=== PATIENT | male | born 1935 | race Caucasian/White ===

== ENCOUNTER 2019-11-21 11:31 | Inpatient (IN) | payer OTHER ==
[2019-11-21 11:46] VITALS: BMI 22.6
--- NOTE | 2019-11-21 12:28 | PDOC ---
History of Present Illness - General Chief Complaint: Chest Pain Stated Complaint: BACK PAIN / FATIGUE Time Seen by Provider: 11/21/19 12:04 - History of Present Illness Initial Comments: 84 yo male with PMH of HLD, DM, GERD presents with chest pressure. Chest Pressure started 1 day ago, mid sternal, radiates to back, non exertional. He also endorses congestion and a cough with clear sputum. He denies fevers, chills, nvd, abd pain, dysuria. He is citizen of [place] speaking so his daughter was used for translation. Pt has a history of alcohol abuse. He had fallen and hit his right eye a few days ago. Pt was advised to have a placemaker placed 10 years ago but declined at the time. PCP: Eduardo Lima Past History - Medical History Allergies/Adverse Reactions: Allergies Allergy/AdvReac Type Severity Reaction Status Date / Time No Known Allergies Allergy Verified 04/16/16 09:04 Home Medications: Ambulatory Orders Aspirin [ASA -] 81 mg PO DAILY 11/21/19 Atorvastatin Ca [Lipitor] 40 mg PO HS 11/21/19 Fluticasone Prop 0.05% Nasal [Flonase -] 1 spray NS PRN 11/21/19 Metformin HCl [Glucophage] 500 mg PO BID 11/21/19 Pantoprazole Sodium [Protonix] 40 mg PO DAILY 11/21/19 COPD: No Diabetes: Yes HTN: Yes Hypercholesterolemia: Yes - Immunization History Immunization Up to Date: No - Psycho-Social/Smoking History Smoking History: Never smoked - Substance Abuse Hx (Audit-C & DAST Scrn) How often the patient has a drink containing alcohol: Never Score: In Men: 4 or > Positive; In Women: 3 or > Positive: 0 Screen Result (Pos requires Nsg. Audit-10AR): Negative In the last yr the pt used illegal drug/Rx for NonMed reason: No Score: Yes response is considered Positive: 0 Screen Result (Positive result requires Nsg. DAST-10): Negative Review of Systems - Review of Systems Constitutional: No: Chills, Fever HEENTM: No: Recent change in vision, Double Vision Respiratory: Yes: Cough, Productive cough. No: Shortness of Breath Cardiac (ROS): Yes: Chest Tightness. No: Edema, Palpitations, Syncope ABD/GI: No: Diarrhea, Nausea, Vomiting, Abdominal cramping : No: Burning, Dysuria Musculoskeletal: No: Joint Pain, Muscle Pain Integumentary: No: Erythema, Flushing, Lesions Neurological: No: Headache, Dizziness Psychiatric: No: Anxiety, Depression, Mood Swings Endocrine: No: Intolerance to Cold, Intolerance to Heat *Physical Exam - Vital Signs Last Vital Signs Temp Pulse Resp BP Pulse Ox 97.5 F L 58 L 18 109/45 L 100 11/21/19 11:44 11/21/19 11:44 11/21/19 11:44 11/21/19 11:44 11/21/19 12:00 - Physical Exam General Appearance: Yes: Appropriately Dressed. No: Apparent Distress HEENT: positive: EOMI, Normal Voice Respiratory/Chest: positive: Lungs Clear, Normal Breath Sounds. negative: Respiratory Distress Cardiovascular: positive: Regular Rhythm, Regular Rate, S1, S2. negative: Murmur Gastrointestinal/Abdominal: positive: Flat, Soft. negative: Tender Musculoskeletal: positive: Normal Inspection. negative: CVA Tenderness Extremity: positive: Normal Capillary Refill, Normal Inspection, Normal Range of Motion Integumentary: positive: Normal Color, Dry, Warm Neurologic: positive: Fully Oriented, Alert, Normal Mood/Affect ED Treatment Course - LABORATORY CBC & Chemistry Diagram: 11/21/19 12:25 11/21/19 12:33 - RADIOLOGY Radiology Studies Ordered: Category Date Time Status CHEST PA & LAT [RAD] Stat Radiology 11/21/19 12:17 Ordered Medical Decision Making - Medical Decision Making 84 yo male with PMH of HLD, DM, GERD presents with 1 day hx of midsternal chest pressure. Heart Score = 4 EKst degree AV block with ME interval 248. Labs: -CBC normal -CMP normal -Trop negative -Lipase negative Images: (CT Head, Chest, Abdomen, Pelvis) Head- no acute pathology Chest- chronic insterstitial disease suggest COPD Aorta- no dissection Pt admitted to telemetry for cardiac monitoring Discharge - Discharge Information Problems reviewed: Yes Clinical Impression/Diagnosis: Chest pain Condition: Stable - Admission Yes - Follow up/Referral - Patient Discharge Instructions - Post Discharge Activity
[2019-11-21 13:31] LABS: HEMATOCRIT 37.8 % (35.4-49); HEMOGLOBIN 12.8 GM/dL (11.7-16.9); MCH 33.1 pg (25.7-33.7); MCHC 33.7 g/dl (32.0-35.9); MEAN CELL VOLUME 98.1 fl (80-96); MEAN PLT VOLUME 7.7 fl (7.5-11.1); PLATELET COUNT 207 K/MM3 (134-434); RBC 3.86 M/mm3 (4.00-5.60); RDW 13.3 % (11.9-15.9); WHITE BLOOD COUNT 8.1 K/mm3 (4.0-10.0)
[2019-11-21 14:09] LABS: ALBUMIN 3.8 g/dl (3.4-5.0); ALK PHOS 68 U/L (45-117); ANION GAP 5 MMOL/L (8-16); BILIRUBIN,TOTAL 0.4 mg/dL (0.2-1); BLOOD UREA NITROGEN 24.4 mg/dL (7-18); CALCIUM 8.9 mg/dL (8.5-10.1); CHLORIDE 104 mmol/L (98-107); CO2 27 mmol/L (21-32); CREATININE 0.9 mg/dL (0.55-1.3); GLUCOSE,RANDOM 103 mg/dL (74-106); LIPASE 119 U/L (73-393); POTASSIUM 4.9 mmol/L (3.5-5.1); SGOT/AST 22 U/L (15-37); SGPT/ALT 19 U/L (13-61); SODIUM 136 mmol/L (136-145)
--- NOTE | 2019-11-21 14:51 | PDOC ---
Documentation entered by Susan Paniagua SCRIBE, acting as scribe for Dmitriy Inman MD. Dmitriy Inman MD: This documentation has been prepared by the riosibe, Susan Paniagua SCRIBE, under my direction and personally reviewed by me in its entirety. I confirm that the documentation accurately reflects all work, treatment, procedures, and medical decision making performed by me. Attending Attestation - Resident Resident Name: MerlyAlexandreestefani - ED Attending Attestation I have performed the following: I have examined & evaluated the patient, The case was reviewed & discussed with the resident, I agree w/resident's findings & plan, Exceptions are as noted - HPI HPI: 11/21/19 14:20 84-year-old male with a history of diabetes, hyperlipidemia, GERD, alcohol abuse presents emergency department with chest pressure since this morning. Reports the pain is midsternal and radiates straight back and is not worse with exertion. He denies any associated SOB, dizziness, focal weakness or numbness, diaphoresis. Denies associated nausea or vomiting. He also reports 3 days of congestion as well as cough with nonproductive sputum. Denies recent travel, lower extremity edema. Denies similar sxs in the past. - Physicial Exam PE: 11/21/19 14:49 Agree with resident exam - Medical Decision Making 11/21/19 14:50 84-year-old male with a history of diabetes, hyperlipidemia, GERD, alcohol abuse presents emergency department with chest pressure radiating to the back since this morning. Mildly bradycardic to 52, remainder of vitals within normal limits. Differential includes ACS versus aortic dissection versus CHF versus pneumonia versus musculoskeletal pain versus PE. Given radiation of the pain to the back, will obtain a CTA dissection protocol. Unlikely PE as patient denies any shortness of breath, has no PE risk factors, and is satting 100% on room air. Anticipate admission pending CTA. Discharge - Discharge Information Problems reviewed: Yes Clinical Impression/Diagnosis: Chest pain Condition: Stable - Follow up/Referral - Patient Discharge Instructions - Post Discharge Activity
[2019-11-21] MEDS ORDERED: ASPIRIN COATED 81 MG TABLET.EC PO ONE (16:37)
[2019-11-21] MEDS ORDERED: ASPIRIN COATED 81 MG TABLET.EC ONE (17:00)
--- NOTE | 2019-11-21 17:48 | EKG ---
Test Reason : Blood Pressure : / mmHG Vent. Rate : 052 BPM Atrial Rate : 052 BPM P-R Int : 248 ms QRS Dur : 098 ms QT Int : 438 ms P-R-T Axes : 025 042 071 degrees QTc Int : 407 ms SINUS BRADYCARDIA WITH 1ST DEGREE A-V BLOCK MINIMAL VOLTAGE CRITERIA FOR LVH, MAY BE NORMAL VARIANT BORDERLINE ECG NO PREVIOUS ECGS AVAILABLE Confirmed by CICI SENA MD ([id number]) on 11/21/2019 5:48:08 PM Referred By: Confirmed By:CICI SENA MD
[2019-11-21] MEDS: ATORVASTATIN CA 40 MG TABLET (FP) PO SCH (22:52)
[2019-11-21] MEDS: HEPARIN NA (PORCINE) 5,000 UNITS/ML 1ML VIAL SQ SCH (22:53)
[2019-11-22] MEDS: HEPARIN NA (PORCINE) 5,000 UNITS/ML 1ML VIAL SQ SCH ×3 (00:50→21:30)
[2019-11-22] MEDS: ATORVASTATIN CA 40 MG TABLET (FP) PO SCH ×2 (00:50→21:30)
[2019-11-22 06:47] LABS: BASO % 0.2 % (0-2.0); EOS % 1.2 % (0-4.5); HEMATOCRIT 34.5 % (35.4-49); HEMOGLOBIN 11.9 GM/dL (11.7-16.9); LYMPH % 41.5 % (8-40); MCH 33.3 pg (25.7-33.7); MCHC 34.3 g/dl (32.0-35.9); MEAN CELL VOLUME 97.1 fl (80-96); MEAN PLT VOLUME 6.9 fl (7.5-11.1); MONO % 8.3 % (3.8-10.2); NEUT % 48.8 % (42.8-82.8); PLATELET COUNT 178 K/MM3 (134-434); RBC 3.56 M/mm3 (4.00-5.60); RDW 13.4 % (11.9-15.9); WHITE BLOOD COUNT 5.7 K/mm3 (4.0-10.0)
--- NOTE | 2019-11-22 07:03 | RAPID ---
Physical Examination Vital Signs: Vital Signs Temperature 98.2 F 11/22/19 05:52 Pulse Rate 44 L 11/22/19 05:52 Respiratory Rate 18 11/22/19 05:52 Blood Pressure 146/70 11/22/19 05:52 O2 Sat by Pulse Oximetry (%) 96 11/22/19 05:52 HR 70, BP 144/80, 100%(RA) BGM 98 Findings/Remarks: Rapid Response called at approx 6:20am. Nurse heard loud sound. Found pt sitting slumped in the bathroom. When pt tried getting up, he lost consciousness. No blood or urine at the scene. Denies pain. Denies LOPEZ, CP, SOB, palpitations. Constitutional: Yes: No Distress, Calm, Pallor HENT: Yes: Atraumatic (no scalp hematoma, nasal bridge midline), Normocephalic Neck: Yes: WNL, Supple, Trachea Midline, Other Cardiovascular: Yes: Bradycardia, Murmur (3/5 systolic murmurs) Respiratory: Yes: CTA Bilaterally. No: Accessory Muscle Use Gastrointestinal: Yes: Soft Musculoskeletal: No: Muscle Pain, Muscle Weakness Extremities: Yes: Other (no long-bone deformities). No: Calf Tenderness Edema: No Peripheral Pulses WNL: No Peripheral Pulses: Left Radial: 2+, Right Radial: 2+, Left Doralis Pedis: 2+, Right Dorsalis Pedis: 2+ Integumentary: No: Bruising, Laceration Neurological: Yes: Alert Rapid Response - Rapid Response Assessment: sp unwitnessed fall and possible syncope. HD stable. BGM 98. Tele monitor showing sinus bradycardia. -CTH to r/o ICH -carotid doppler, and orthostatics to evaluate for syncope
[2019-11-22 07:24] LABS: ALBUMIN 3.4 g/dl (3.4-5.0); BILIRUBIN,TOTAL 0.5 mg/dL (0.2-1); BLOOD UREA NITROGEN 22.1 mg/dL (7-18); CALCIUM 8.7 mg/dL (8.5-10.1); CREATININE 0.9 mg/dL (0.55-1.3); MAGNESIUM 2.6 mg/dL (1.8-2.4); POTASSIUM 4.6 mmol/L (3.5-5.1); TOT PROT 7.3 g/dl (6.4-8.2)
--- NOTE | 2019-11-22 08:09 | HP ---
Admitting History and Physical - Admission History of Present Illness: 84 Y/O MALE ADMITTED FOR CHEST PAIN. AT THIS TIME PT STATES HE DIDNT HAVE CHEST PAIN BUT FATIGUE AND WAS ANXIOUS THIS AM PT HAD A FALL--PT UNABLE TO GIVE DETAILS OF EVENT - Past Medical History Cardiovascular: Yes: HTN, Hyperlipdemia Gastrointestinal: Yes: GERD Endocrine: Yes: Diabetes Mellitus - Smoking History Smoking history: Former smoker Have you smoked in the past 12 months: No Aproximately how many cigarettes per day: 2 If you are a former smoker, when did you quit?: 20 YRS AGO Home Medications - Allergies Allergies/Adverse Reactions: Allergies Allergy/AdvReac Type Severity Reaction Status Date / Time No Known Allergies Allergy Verified 04/16/16 09:04 - Home Medications Home Medications: Ambulatory Orders Aspirin [ASA -] 81 mg PO DAILY 11/21/19 Atorvastatin Ca [Lipitor] 40 mg PO HS 11/21/19 Fluticasone Prop 0.05% Nasal [Flonase -] 1 spray NS PRN 11/21/19 Metformin HCl [Glucophage] 500 mg PO BID 11/21/19 Pantoprazole Sodium [Protonix] 40 mg PO DAILY 11/21/19 Review of Systems - Review of Systems Cardiovascular: denies: Chest Pain Respiratory: denies: SOB Gastrointestinal: denies: Abdominal Pain Neurological: reports: Syncope, Weakness Physical Examination Vital Signs: Vital Signs Temperature 98.2 F 11/22/19 05:52 Pulse Rate 44 L 11/22/19 05:52 Respiratory Rate 18 11/22/19 05:52 Blood Pressure 146/70 11/22/19 05:52 O2 Sat by Pulse Oximetry (%) 96 11/22/19 05:52 Cardiovascular: Yes: Bradycardia, S1, S2 Respiratory: Yes: Regular, CTA Bilaterally Gastrointestinal: Yes: Normal Bowel Sounds, Soft. No: Tenderness Edema: No Neurological: Yes: Alert, Oriented. No: Dysarthria, Facial Droop Labs: CBC, BMP 11/22/19 05:50 11/22/19 05:50 Imaging - Results Cat Scan: Report Reviewed Problem List - Problems (1) Chest pain Assessment/Plan: QUESTIONABLE IF CP CE NEGATIVE ECHO CARDIO Code(s): R07.9 - CHEST PAIN, UNSPECIFIED (2) Syncope Assessment/Plan: UNWITNESSED BUT NOTED ON FLOOR BRADYCARDIA NOTED CT HESD NEURO CARDIO ECHO LABS NOTED TELE Code(s): R55 - SYNCOPE AND COLLAPSE (3) HLD (hyperlipidemia) Assessment/Plan: Laboratory Tests 11/22/19 05:50 Cholesterol 156 Total LDL Cholesterol 93 HDL Cholesterol 45 Code(s): E78.5 - HYPERLIPIDEMIA, UNSPECIFIED (4) Diabetes Assessment/Plan: MONITOR BGM HOLD METFROMIN Code(s): E11.9 - TYPE 2 DIABETES MELLITUS WITHOUT COMPLICATIONS (5) Aneurysm Assessment/Plan: NO DISSECTION NOTED ECHO CARDIO Code(s): I72.9 - ANEURYSM OF UNSPECIFIED SITE
[2019-11-22] MEDS: PANTOPRAZOLE 40 MG TABLET PO SCH (09:44)
[2019-11-22] MEDS: ASPIRIN 81 MG CHEWABLE TABLETS PO SCH (09:44)
--- NOTE | 2019-11-22 09:45 | CON.CARD ---
Consult Consult Specialty:: Cardiology Referred by:: Sotero Reason for Consultation:: Chest pain - History of Present Illness Chief Complaint: Chest pain History of Present Illness: The patient is an 84-year-old man, with a history of diabetes, hypertension, hyperlipidemia, alcohol consumer, falls, now admitted with retrosternal chest tightness and shortness of breath. Symptoms occurred at rest. The patient is currently comfortable and symptom-free. Completely asymptomatic. Ruled out for COVID-19. The patient had a syncopal event in the toilet last night. ECG shows sinus bradycardia at 52, first-degree AV block, voltage criteria for left ventricular hypertrophy, nonspecific ST-T changes. - History Source History Provided By: Patient, Medical Record Limitations to Obtaining History: Poor Historian - Past Medical History Cardio/Vascular: Yes: HTN, Hyperlipdemia Gastrointestinal: Yes: GERD Endocrine: Yes: Diabetes Mellitus - Smoking History Smoking history: Former smoker Have you smoked in the past 12 months: No Aproximately how many cigarettes per day: 2 If you are a former smoker, when did you quit?: 20 YRS AGO Home Medications - Allergies Allergies/Adverse Reactions: Allergies Allergy/AdvReac Type Severity Reaction Status Date / Time No Known Allergies Allergy Verified 04/16/16 09:04 - Home Medications Home Medications: Ambulatory Orders Aspirin [ASA -] 81 mg PO DAILY 11/21/19 Atorvastatin Ca [Lipitor] 40 mg PO HS 11/21/19 Fluticasone Prop 0.05% Nasal [Flonase -] 1 spray NS PRN 11/21/19 Metformin HCl [Glucophage] 500 mg PO BID 11/21/19 Pantoprazole Sodium [Protonix] 40 mg PO DAILY 11/21/19 Review of Systems - Review of Systems Constitutional: reports: No Symptoms Eyes: reports: No Symptoms HENT: reports: No Symptoms Neck: reports: No Symptoms Cardiovascular: reports: No Symptoms Respiratory: reports: No Symptoms Gastrointestinal: reports: No Symptoms Genitourinary: reports: No Symptoms Breasts: reports: No Symptoms Reported Musculoskeletal: reports: No Symptoms Integumentary: reports: No Symptoms Neurological: reports: No Symptoms Endocrine: reports: No Symptoms Hematology/Lymphatic: reports: No Symptoms Vital Signs: Vital Signs Temperature 98.0 F 11/22/19 06:35 Pulse Rate 50 L 11/22/19 06:35 Respiratory Rate 18 11/22/19 06:35 Blood Pressure 144/70 11/22/19 06:35 O2 Sat by Pulse Oximetry (%) 96 11/22/19 06:35 Constitutional: Yes: Well Nourished, No Distress, Calm Eyes: Yes: WNL, Conjunctiva Clear, EOM Intact HENT: Yes: WNL, Atraumatic, Normocephalic Neck: Yes: WNL, Supple, Trachea Midline Respiratory: Yes: WNL, Regular, CTA Bilaterally Gastrointestinal: Yes: WNL, Normal Bowel Sounds, Soft Cardiovascular: Yes: WNL, Regular Rate and Rhythm, Bradycardia JVD: No Carotid Bruit: No PMI: Non-Displaced Heart Sounds: Yes: S1, S2 Murmur: Yes: Systolic Murmur, Grade 2 Musculoskeletal: Yes: WNL Extremities: Yes: WNL Edema: No Peripheral Pulses: 1+ Left Doralis Pedis, 1+ Right Dorsalis Pedis Integumentary: Yes: WNL Neurological: Yes: WNL, Alert, Oriented ...Motor Strength: WNL - Other Data Labs, Other Data: CBC, BMP 11/22/19 05:50 11/22/19 05:50 Troponin, BNP 11/21/19 11/21/19 11/22/19 12:33 14:50 05:50 Troponin I < 0.02 < 0.02 0.02 Troponin, BNP 11/21/19 11/21/19 11/22/19 12:33 14:50 05:50 Troponin I < 0.02 < 0.02 0.02 Assessment/Plan The patient is an 84-year-old man, with a history of diabetes, hypertension, hyperlipidemia, alcohol consumer, falls, now admitted with retrosternal chest tightness and shortness of breath. Symptoms occurred at rest. The patient is currently comfortable and symptom-free. Completely asymptomatic. Ruled out for COVID-19. The patient had a syncopal event in the toilet last night. ECG shows sinus bradycardia at 52, first-degree AV block, voltage criteria for left ventricular hypertrophy, nonspecific ST-T changes. There is no evidence of ischemia nor acute coronary syndrome. No CHF. No arrhythmias documented at this point. Please continue current regimen. Please arrange for a pharmacological nuclear stress test. Also arrange for an echocardiogram. The patient is stable. We will follow results.
--- NOTE | 2019-11-22 10:38 | EKG ---
Test Reason : Blood Pressure : / mmHG Vent. Rate : 051 BPM Atrial Rate : 051 BPM P-R Int : 246 ms QRS Dur : 104 ms QT Int : 448 ms P-R-T Axes : 025 029 088 degrees QTc Int : 412 ms SINUS BRADYCARDIA WITH 1ST DEGREE A-V BLOCK LEFT VENTRICULAR HYPERTROPHY WITH REPOLARIZATION ABNORMALITY ABNORMAL ECG WHEN COMPARED WITH ECG OF 21-NOV-2019 14:49, NO SIGNIFICANT CHANGE WAS FOUND Confirmed by Víctor Manning MD ([id number]) on 11/22/2019 10:38:20 AM Referred By: MAYANK FATIMA DR Confirmed By:Víctor Manning MD
--- NOTE | 2019-11-22 10:38 | EKG ---
Test Reason : Blood Pressure : / mmHG Vent. Rate : 050 BPM Atrial Rate : 050 BPM P-R Int : 252 ms QRS Dur : 106 ms QT Int : 454 ms P-R-T Axes : 017 039 076 degrees QTc Int : 413 ms SINUS BRADYCARDIA WITH 1ST DEGREE A-V BLOCK LEFT VENTRICULAR HYPERTROPHY WITH REPOLARIZATION ABNORMALITY ABNORMAL ECG WHEN COMPARED WITH ECG OF 21-NOV-2019 12:26, NO SIGNIFICANT CHANGE WAS FOUND Confirmed by Víctor Manning MD ([id number]) on 11/22/2019 10:37:09 AM Referred By: Confirmed By:Víctor Manning MD
--- NOTE | 2019-11-22 11:23 | ECHO ---
Version: 1 Name: MONIK QUIROGA Exam: Adult Echocardiogram Study Date: 11/22/2019, 10:18 AM Age: 84 Years MMode/2D Measurements & Calculations IVSd: 1.48 cm LVIDs: 2.28 cm LVIDd: 3.4 cm LVPWd: 1.36 cm LAV (MOD-bp): 41.8 ml LVOT diam: 2.03 cm Ao root diam: 3.3 cm LA dimension: 3.1 cm Doppler Measurements & Calculations MV E max jermaine: 54.5 cm/sec Med E/e': 16.7 MV A max jermaine: 136.5 cm/sec Med Peak E' Jermaine: 3.3 cm/sec MV E/A: 0.40 Lat E/e': 12.2 Lat Peak E' Jermaine: 4.5 cm/sec Ao max P.9 mmHg Ao V2 max: 157.5 cm/sec AI P1/2t: 705.2 msec TR max jermaine: 226.7 cm/sec TR max P.6 mmHg Left Ventricle The left ventricle is grossly normal size. There is mild concentric left ventricular hypertrophy. Le ft ventricular systolic function is normal. Ejection Fraction = 65%. The transmitral spectral Doppler f low pattern is suggestive of impaired LV relaxation. Right Ventricle The right ventricle is normal in size and function. Atria Normal left and right atrial size and function. Mitral Valve There is mild mitral valve thickening. There is mild mitral regurgitation. Tricuspid Valve The tricuspid valve is normal in structure and function. There is mild tricuspid regurgitation. Aortic Valve There is mild aortic sclerosis.;. Mild aortic regurgitation. Pulmonic Valve The pulmonic valve is not well visualized. Great Vessels The aortic root is normal size. Normal aortic arch, descending and ascending aorta. Pericardium/Pleura There is no pericardial effusion. Summary Statements Left ventricular systolic function is normal. There is mild concentric left ventricular hypertrophy. The left ventricle is grossly normal size. Ejection Fraction = 65%. The transmitral spectral Doppler flow pattern is suggestive of impaired LV relaxation. The right ventricle is normal in size and function. Normal left and right atrial size and function. There is mild mitral valve thickening. There is mild mitral regurgitation. The tricuspid valve is normal in structure and function. There is mild tricuspid regurgitation. There is mild aortic sclerosis.; Mild aortic regurgitation. The pulmonic valve is not well visualized. The aortic root is normal size. Normal aortic arch, descending and ascending aorta There is no pericardial effusion. Sotero [place] 11/22/2019, 11:22 AM Ordering Physician: Trino Hood Performed By: Nikole Klein
[2019-11-22] MEDS: INSULIN SLIDING SCALE (NOVOLOG) 1 VIAL SQ SCH ×3 (11:40→21:34)
[2019-11-22] MEDS: NIFEdipine E.R. 30 MG TABLET PO SCH (16:47)
[2019-11-22] MEDS: FLUTICASONE PROP 0.05% 16 GM NASAL SPRAY NS SCH (17:41)
[2019-11-22 18:07] LABS: PH,URINE 6.5 (5.0-8.0); URINE APPEARANCE CLEAR; URINE BILIRUBIN NEGATIVE (NEGATIVE); URINE COLOR YELLOW; URINE GLUCOSE (UA) NEGATIVE (NEGATIVE); URINE KETONE NEGATIVE (NEGATIVE); URINE LEUK ESTERASE NEGATIVE (NEGATIVE); URINE NITRITE NEGATIVE (NEGATIVE); URINE PROTEIN NEGATIVE (NEGATIVE); URINE UROBILINOGEN 0.2 mg/dL (0.2-1.0)
[2019-11-23] MEDS: INSULIN SLIDING SCALE (NOVOLOG) 1 VIAL SQ SCH ×4 (06:39→22:17)
--- NOTE | 2019-11-23 08:42 | PN ---
Progress Note, Physician - Current Medication List Current Medications: Active Medications Aspirin (Asa -) 81 mg PO DAILY [facility] Last Admin: 11/22/19 09:44 Dose: 81 mg Documented by: Atorvastatin Calcium (Lipitor -) 40 mg PO HS [facility] Last Admin: 11/22/19 21:30 Dose: 40 mg Documented by: Fluticasone Propionate (Flonase -) 1 spray NS DAILY [facility] Last Admin: 11/22/19 17:41 Dose: 1 spray Documented by: Heparin Sodium (Porcine) (Heparin -) 5,000 unit SQ BID [facility] Last Admin: 11/22/19 21:30 Dose: 5,000 unit Documented by: Insulin Aspart (Novolog Vial Sliding Scale -) 1 vial SQ ACHS [facility]; Protocol Last Admin: 11/23/19 06:39 Dose: Not Given Documented by: Nifedipine (Procardia Xl -) 30 mg PO DAILY [facility] Last Admin: 11/22/19 16:47 Dose: 30 mg Documented by: Pantoprazole Sodium (Protonix -) 40 mg PO DAILY [facility] Last Admin: 11/22/19 09:44 Dose: 40 mg Documented by: - Objective Vital Signs: Vital Signs Temperature 97.8 F 11/23/19 06:00 Pulse Rate 46 L 11/23/19 06:00 Respiratory Rate 18 11/23/19 06:00 Blood Pressure 98/48 L 11/23/19 06:00 O2 Sat by Pulse Oximetry (%) 98 11/23/19 06:00 Cardiovascular: Yes: Regular Rate and Rhythm Respiratory: Yes: Regular, CTA Bilaterally Gastrointestinal: Yes: Normal Bowel Sounds, Soft Labs: CBC, BMP 11/22/19 05:50 11/22/19 05:50 Problem List - Problems (1) Chest pain Assessment/Plan: QUESTIONABLE IF CP CE NEGATIVE ECHO CARDIO noted--stress test Code(s): R07.9 - CHEST PAIN, UNSPECIFIED (2) Syncope Assessment/Plan: UNWITNESSED BUT NOTED ON FLOOR BRADYCARDIA NOTED CT HEAD NEURO CARDIO ECHO LABS NOTED TELE Code(s): R55 - SYNCOPE AND COLLAPSE (3) HLD (hyperlipidemia) Assessment/Plan: Laboratory Tests 11/22/19 05:50 Cholesterol 156 Total LDL Cholesterol 93 HDL Cholesterol 45 Code(s): E78.5 - HYPERLIPIDEMIA, UNSPECIFIED (4) Diabetes Assessment/Plan: MONITOR BGM HOLD METFROMIN Code(s): E11.9 - TYPE 2 DIABETES MELLITUS WITHOUT COMPLICATIONS (5) Aneurysm Assessment/Plan: NO DISSECTION NOTED ECHO CARDIO Code(s): I72.9 - ANEURYSM OF UNSPECIFIED SITE
--- NOTE | 2019-11-23 08:52 | PN ---
Progress Note, Physician Chief Complaint: Chest pain and shortness of breath History of Present Illness: The patient is an 84-year-old man, with a history of diabetes, hypertension, hyperlipidemia, alcohol consumer, falls, now admitted with retrosternal chest tightness and shortness of breath. Symptoms occurred at rest. The patient is currently comfortable and symptom-free. Completely asymptomatic. Ruled out for COVID-19. The patient had a syncopal event in the toilet last night. ECG shows sinus bradycardia at 52, first-degree AV block, voltage criteria for left ventricular hypertrophy, nonspecific ST-T changes. There is no evidence of ischemia nor acute coronary syndrome. No CHF. No arrhythmias documented at this point. Echocardiogram performed 11/22/2019 showed normal left ventricular ejection frac tion, normal right ventricular systolic function left ventricular hypertrophy, mild mitral and tricuspid valve regurgitation. No other clinically important findings noted on the echo. - Current Medication List Current Medications: Active Medications Aspirin (Asa -) 81 mg PO DAILY [facility] Last Admin: 11/22/19 09:44 Dose: 81 mg Documented by: Atorvastatin Calcium (Lipitor -) 40 mg PO HS [facility] Last Admin: 11/22/19 21:30 Dose: 40 mg Documented by: Fluticasone Propionate (Flonase -) 1 spray NS DAILY [facility] Last Admin: 11/22/19 17:41 Dose: 1 spray Documented by: Heparin Sodium (Porcine) (Heparin -) 5,000 unit SQ BID [facility] Last Admin: 11/22/19 21:30 Dose: 5,000 unit Documented by: Insulin Aspart (Novolog Vial Sliding Scale -) 1 vial SQ ACHS [facility]; Protocol Last Admin: 11/23/19 06:39 Dose: Not Given Documented by: Nifedipine (Procardia Xl -) 30 mg PO DAILY [facility] Last Admin: 11/22/19 16:47 Dose: 30 mg Documented by: Pantoprazole Sodium (Protonix -) 40 mg PO DAILY [facility] Last Admin: 11/22/19 09:44 Dose: 40 mg Documented by: - Objective Vital Signs: Vital Signs Temperature 97.8 F 11/23/19 06:00 Pulse Rate 46 L 11/23/19 06:00 Respiratory Rate 18 11/23/19 06:00 Blood Pressure 98/48 L 11/23/19 06:00 O2 Sat by Pulse Oximetry (%) 98 11/23/19 06:00 Constitutional: Yes: Well Nourished, No Distress, Calm Eyes: Yes: WNL, Conjunctiva Clear, EOM Intact HENT: Yes: WNL, Atraumatic, Normocephalic Neck: Yes: WNL, Supple, Trachea Midline Cardiovascular: Yes: WNL, Regular Rate and Rhythm, Bradycardia Respiratory: Yes: WNL, Regular, CTA Bilaterally Gastrointestinal: Yes: WNL, Normal Bowel Sounds, Soft ...Rectal Exam: Yes: Deferred Genitourinary: Yes: WNL Breast(s): Yes: WNL Musculoskeletal: Yes: WNL Extremities: Yes: WNL Edema: No Peripheral Pulses: Left Femoral: 1+, Right Femoral: 1+ Neurological: Yes: WNL, Alert, Oriented ...Motor Strength: WNL Psychiatric: Yes: WNL, Alert, Oriented Labs: CBC, BMP 11/22/19 05:50 11/22/19 05:50 Assessment/Plan The patient remains quite stable from the cardiac standpoint. The blood pressure is better controlled. He is symptomatically better. Denied chest pains and shortness of breath. No palpitations. Maintaining sinus rhythm. The echocardiogram showed that both ventricles are functioning normally. There was mild left ventricular hypertrophy. Mild mitral and tricuspid valve regurgitation. No other clinically significant findings on the echo. Keep the patient n.p.o. Waiting for a pharmacological nuclear stress test today. May potentially go home today if the stress test is normal. We will follow results.
[2019-11-23] MEDS ORDERED: REGADENOSON 0.4 MG/5 ML PRE-FILLED SYRINGE IVPUSH ONE ×2 (10:45→10:55)
[2019-11-23] MEDS: FLUTICASONE PROP 0.05% 16 GM NASAL SPRAY NS SCH (12:09)
[2019-11-23] MEDS: ASPIRIN 81 MG CHEWABLE TABLETS PO SCH (12:09)
[2019-11-23] MEDS: HEPARIN NA (PORCINE) 5,000 UNITS/ML 1ML VIAL SQ SCH ×2 (12:09→22:01)
[2019-11-23] MEDS: PANTOPRAZOLE 40 MG TABLET PO SCH (12:09)
[2019-11-23] MEDS: NIFEdipine E.R. 30 MG TABLET PO SCH (12:20)
[2019-11-23 13:34] LABS: BASO % 0.1 % (0-2.0); EOS % 0.3 % (0-4.5); HEMATOCRIT 37.2 % (35.4-49); HEMOGLOBIN 12.6 GM/dL (11.7-16.9); LYMPH % 22.4 % (8-40); MCH 33.2 pg (25.7-33.7); MCHC 33.9 g/dl (32.0-35.9); MEAN PLT VOLUME 6.9 fl (7.5-11.1); MONO % 7.5 % (3.8-10.2); NEUT % 69.7 % (42.8-82.8); PLATELET COUNT 180 K/MM3 (134-434); RDW 13.1 % (11.9-15.9); WHITE BLOOD COUNT 6.7 K/mm3 (4.0-10.0)
[2019-11-23 14:19] LABS: ALBUMIN 3.8 g/dl (3.4-5.0); BILIRUBIN,TOTAL 0.7 mg/dL (0.2-1); BLOOD UREA NITROGEN 29.1 mg/dL (7-18); CALCIUM 8.6 mg/dL (8.5-10.1); CREATININE 1.1 mg/dL (0.55-1.3); POTASSIUM 4.4 mmol/L (3.5-5.1); TOT PROT 7.9 g/dl (6.4-8.2)
--- NOTE | 2019-11-23 19:24 | CON.NEURO ---
Consult - Past Medical History Cardio/Vascular: Yes: HTN, Hyperlipdemia Gastrointestinal: Yes: GERD Endocrine: Yes: Diabetes Mellitus - Smoking History Smoking history: Former smoker Have you smoked in the past 12 months: No Aproximately how many cigarettes per day: 2 If you are a former smoker, when did you quit?: 20 YRS AGO Home Medications - Allergies Allergies/Adverse Reactions: Allergies Allergy/AdvReac Type Severity Reaction Status Date / Time No Known Allergies Allergy Verified 04/16/16 09:04 - Home Medications Home Medications: Ambulatory Orders Aspirin [ASA -] 81 mg PO DAILY 11/21/19 Atorvastatin Ca [Lipitor] 40 mg PO HS 11/21/19 Fluticasone Prop 0.05% Nasal [Flonase -] 1 spray NS PRN 11/21/19 Metformin HCl [Glucophage] 500 mg PO BID 11/21/19 Pantoprazole Sodium [Protonix] 40 mg PO DAILY 11/21/19 Physical Exam-Neuro Vital Signs: Vital Signs Temperature 97.8 F 11/23/19 18:00 Pulse Rate 59 L 11/23/19 18:00 Respiratory Rate 20 11/23/19 18:00 Blood Pressure 150/79 11/23/19 18:00 O2 Sat by Pulse Oximetry (%) 98 11/23/19 09:00 Labs: CBC, BMP 11/23/19 12:40 11/23/19 12:40 Assessment/Plan CC Episode of syncope HPI 84 year old yi speaking male PMH of HLD, DM, GERD presents with chest pressure. He has episode of passing out , very brief and he also had been postural hypotensive. Patient was advice pacemaker in past. During this admission, his ct head is normal. He denies any focal neurological symptoms. He has been improving and his stress test and echo was noraml. Patient has histor of alcohol abuse in past. PMH as above. Allergies/Adverse Reactions: Allergies Allergy/AdvReac Type Severity Reaction Status Date / Time No Known Allergies Allergy Verified 04/16/16 09:04 Home Medications: Aspirin [ASA -] 81 mg PO DAILY 11/21/19 Atorvastatin Ca [Lipitor] 40 mg PO HS 11/21/19 Fluticasone Prop 0.05% Nasal [Flonase -] 1 spray NS PRN 11/21/19 Metformin HCl [Glucophage] 500 mg PO BID 11/21/19 Pantoprazole Sodium [Protonix] 40 mg PO DAILY 11/21/19 ROS,FH,SH reviewed in chart NEUROLOGICAL EXAMINATION Alert oriented x 3 neck is supple and speech is normal eomi, pupils reactive no face asymmetry moving all ext sensation is normal reflex are symmetrical ct head unremarkable Assessment/Plan 84 year old yi speaking male PMH of HLD, DM, GERD had episode of syncope, ct head is normal, and neuro exam is unremarkable. NO evidence of tia or seizure Plan: no further recommendation from neurological point of view - no need for mri or eeg, - supportive care - fall precautions, and get up slowly Thanking you so much Nelson Feliciano MD
[2019-11-23] MEDS: ATORVASTATIN CA 40 MG TABLET (FP) PO SCH (22:01)
[2019-11-24] MEDS: INSULIN SLIDING SCALE (NOVOLOG) 1 VIAL SQ SCH ×2 (06:22→12:27)
--- NOTE | 2019-11-24 08:04 | DS ---
Physical Examination Vital Signs: Vital Signs Temperature 98.3 F 11/24/19 06:00 Pulse Rate 44 L 11/24/19 06:00 Respiratory Rate 20 11/24/19 06:00 Blood Pressure 107/52 L 11/24/19 06:00 O2 Sat by Pulse Oximetry (%) 97 11/24/19 06:00 Cardiovascular: Yes: Regular Rate and Rhythm Respiratory: Yes: Regular, CTA Bilaterally Gastrointestinal: Yes: Normal Bowel Sounds, Soft Labs: CBC, BMP 11/23/19 12:40 11/23/19 12:40 Discharge Summary Problems reviewed: Yes Reason For Visit: SENSATION OF CHEST PRESSURE Current Active Problems Aneurysm (Acute) Chest pain (Acute) Diabetes (Acute) HLD (hyperlipidemia) (Acute) Syncope (Acute) Hospital Course: - Problems (1) Chest pain Assessment/Plan: QUESTIONABLE IF CP CE NEGATIVE ECHO CARDIO noted--stress test--normal Code(s): R07.9 - CHEST PAIN, UNSPECIFIED (2) Syncope Assessment/Plan: UNWITNESSED BUT NOTED ON FLOOR BRADYCARDIA NOTED CT HEAD NEURO CARDIO ECHO LABS NOTED TELE Code(s): R55 - SYNCOPE AND COLLAPSE (3) HLD (hyperlipidemia) Assessment/Plan: Laboratory Tests 11/22/19 05:50 Cholesterol 156 Total LDL Cholesterol 93 HDL Cholesterol 45 Code(s): E78.5 - HYPERLIPIDEMIA, UNSPECIFIED (4) Diabetes Assessment/Plan: MONITOR BGM HOLD METFROMIN Code(s): E11.9 - TYPE 2 DIABETES MELLITUS WITHOUT COMPLICATIONS (5) Aneurysm Assessment/Plan: NO DISSECTION NOTED ECHO CARDIO Code(s): I72.9 - ANEURYSM OF UNSPECIFIED SITE dc home with follow up with pmd Condition: Stable - Instructions Referrals: Eduardo Lima [Primary Care Provider] - 1 Week - Home Medications Comprehensive Discharge Medication List: Ambulatory Orders Aspirin [ASA -] 81 mg PO DAILY 11/21/19 Atorvastatin Ca [Lipitor] 40 mg PO HS 11/21/19 Fluticasone Prop 0.05% Nasal [Flonase -] 1 spray NS PRN 11/21/19 Pantoprazole Sodium [Protonix] 40 mg PO DAILY 11/21/19 Nifedipine ER [Procardia XL -] 30 mg PO DAILY #30 [id number] 11/24/19
[2019-11-24] MEDS: ASPIRIN 81 MG CHEWABLE TABLETS PO SCH (09:17)
[2019-11-24] MEDS: PANTOPRAZOLE 40 MG TABLET PO SCH (09:17)
[2019-11-24] MEDS: FLUTICASONE PROP 0.05% 16 GM NASAL SPRAY NS SCH (09:18)
[2019-11-24] MEDS: NIFEdipine E.R. 30 MG TABLET PO SCH (09:18)
[2019-11-24] MEDS: HEPARIN NA (PORCINE) 5,000 UNITS/ML 1ML VIAL SQ SCH (09:18)
--- NOTE | 2019-11-24 11:09 | PN ---
Progress Note (short form) - Note Progress Note: HPI 84 year old polish speaking male PMH of HLD, DM, GERD presents with chest pressure. He has episode of passing out , very brief and he also had been postural hypotensive. Patient was advice pacemaker in past. During this admission, his ct head is normal. He denies any focal neurological symptoms. He has been improving and his stress test and echo was noraml. Patient has histor of alcohol abuse in past. Patient is feeling , walked with PT and did not feel dizziness. He has been cleared by dog handler or trainer NEUROLOGICAL EXAMINATION Alert oriented x 3 neck is supple and speech is normal eomi, pupils reactive no face asymmetry moving all ext sensation is normal reflex are symmetrical ct head unremarkable Assessment/Plan 84 year old polish speaking male PMH of HLD, DM, GERD had episode of syncope, ct head is normal, and neuro exam is unremarkable. NO eviden ce of tia or seizure Plan: feeling better, and can be dicharged and follow up outpatient. - supportive care - fall precautions, and get up slowly Thanking you so much Nelson Feliciano MD
[2019-11-24 11:39] VITALS: BP 125/69; PULSE 53; TEMP 97.9
== END 2019-11-24 13:28 | disposition home or self-care (01) | DRG 312 ==
LOC: JER 11:31 → JERBED 17:18 → J4W 21:30
PROVIDERS: ADMIT Family Medicine; ATTEND Family Medicine
DX: R55 Syncope and collapse (principal); R00.1 Bradycardia, unspecified; R07.89 Other chest pain; E11.9 Type 2 diabetes mellitus without complications; E78.5 Hyperlipidemia, unspecified; K21.9 Gastro-esophageal reflux disease without esophagitis; R29.6 Repeated falls; I44.0 Atrioventricular block, first degree; I72.9 Aneurysm of unspecified site; I10 Essential (primary) hypertension; F10.10 Alcohol abuse, uncomplicated
CPT/HCPCS: 36415; 70450-TC; 71275-TC; 74174-TC; 78452-TC; 80053; 80061; 81003; 82550; 82962; 83036; 83690; 83721; 83735; 84443; 84484; 85025; 85027; 87086; 93005; 93010; 93017; 93306-TC; 93880-TC; 97116-GP; 97161-GP; 99285-25; A9502; J1644; J2785; Q9967; U0003